=== PATIENT | male | born 1960 | race Caucasian/White ===

== ENCOUNTER → 2016-02-18 | Outpatient (CLI) | payer OTHER ==
[~2016-02-18] MED LIST: CELE1CAP8; HYDR2TAB PO; IVER1CRE; ROBA500T PO; ZOLP10TA3; ZOLP10TA3 PO
[2016-02-18 10:12] LABS: AUTOMATED NEUTROPHIL # 2.5 TH/MM3 (1.8-7.7); BASOPHIL # 0.1 TH/MM3 (0-0.2); BASOPHIL % 1.1 % (0.0-2.0); EOSINOPHIL # 0.1 TH/MM3 (0-0.4); HEMATOCRIT 45.5 % (39.0-51.0); HEMO FLAGS DIFF FINAL; LYMPH % 31.2 % (9.0-44.0); LYMPHOCYTE # 1.4 TH/MM3 (1.0-4.8); MEAN CELL VOLUME 84.5 FL (80.0-100.0); MEAN CORPUSCULAR HEMOGLOBIN 28.5 PG (27.0-34.0); MEAN CORPUSCULAR HGB CONC 33.7 % (32.0-36.0); MONO % 8.5 % (0.0-8.0); NEUT % 56.2 % (16.0-70.0); PLATELET COUNT 215 TH/MM3 (150-450); RED BLOOD COUNT 5.39 MIL/MM3 (4.50-5.90); WHITE BLOOD COUNT 4.4 TH/MM3 (4.0-11.0)
[2016-02-18 10:28] LABS: APTT (PATIENT) 26.4 SEC (24.3-30.1); PROTHROMBIN TIME - PATIENT 10.7 SEC (9.8-11.6)
[2016-02-18 10:44] LABS: ALKALINE PHOSPHATASE 81 U/L (45-117); ALT (GPT) 23 U/L (12-78); ANION GAP 4 MEQ/L (5-15); AST (GOT) 13 U/L (15-37); BICARBONATE 32.6 MEQ/L (21.0-32.0); BLOOD UREA NITROGEN 15 MG/DL (7-18); CHLORIDE 104 MEQ/L (98-107); GLOMERULAR FILTRATION RATE 68 ML/MIN (>89); GLUCOSE,FASTING 62 MG/DL (74-99); POTASSIUM 4.2 MEQ/L (3.5-5.1); SODIUM (NA) 141 MEQ/L (136-145)
== END ==
LOC: CLAB 09:37
DX: M54.5 Low back pain (principal); N18.2 Chronic kidney disease, stage 2 (mild); M48.02 Spinal stenosis, cervical region; M50.10 Cervical disc disorder with radiculopathy, unspecified cervical region; F41.1 Generalized anxiety disorder; R73.01 Impaired fasting glucose; E78.2 Mixed hyperlipidemia; F51.01 Primary insomnia
CPT/HCPCS: 36415; 80053; 85025; 85610; 85730

== ENCOUNTER 2016-02-28 09:56 | Inpatient (IN) | payer OTHER ==
[~2016-02-28] VITALS: Ht 185.4 cm; Wt 90.5 kg
[2016-03-06] MEDS ORDERED: INSULIN HUMAN REGULAR 1,000 UNITS/10 ML VIAL SQ PRN (07:30)
[2016-03-06] MEDS ORDERED: SODIUM CHLORID 0.9% 500 ML IV SCH (07:30)
[2016-03-06] MEDS ORDERED: LACTATED RINGER'S 1000 ML IV SCH (07:30)
[2016-03-06] MEDS ORDERED: METOPROLOL TARTRATE 25 MG TAB PO PRN (07:30)
[2016-03-06] MEDS ORDERED: LACTATED RINGER'S 1000 ML INJ 1,000 ML IV SCH (07:30)
[2016-03-06] MEDS ORDERED: GENTAMICIN SULFATE 80 MG/2 ML VIAL ONE (07:36)
[2016-03-06] MEDS ORDERED: THROMBIN (TOPICAL) 5,000 UNIT VIAL ONE (07:36)
[2016-03-06] MEDS ORDERED: GELFOAM SIZE 100 ONE ×2 (07:37→18:48)
[2016-03-06] MEDS ORDERED: LIDOCAINE 1%/EPINEPHrine 1:100,000 SOLN 20 ML VIAL ONE (07:37)
[2016-03-06 07:42] VITALS: BP 129/82; PULSE 71; RESP 18; TEMP 97.5; O2SAT 99
[2016-03-06] MEDS: ceFAZolin 1,000 MG/NS 100 ML IV SCH ×4 (07:55→18:40)
[2016-03-06] MEDS ORDERED: MIDAZOLAM HCL 2 MG/2 ML VIAL ONE ×2 (08:15→17:29)
[2016-03-06] MEDS ORDERED: ACETAMINOPHEN 1000 MG/100 ML VIAL IV ONE (08:15)
[2016-03-06] MEDS ORDERED: fentaNYL CITRATE 250 MCG/5 ML AMP ONE ×3 (08:15→21:34)
[2016-03-06] MEDS ORDERED: FAMOTIDINE 20 MG/2 ML VIAL ONE (08:16)
[2016-03-06] MEDS ORDERED: NORMOSOL R INJ 2,000 ML IV ONE (12:00)
[2016-03-06] MEDS ORDERED: PROPOFOL 200 MG/20 ML AMP IV ONE (12:00)
[2016-03-06] MEDS ORDERED: ONDANSETRON HCL 4 MG/2 ML VIAL IV PUSH ONE (12:00)
[2016-03-06] MEDS ORDERED: DEXAMETHASONE SOD PHOS 4 MG/ML VIAL ONE (17:29)
[2016-03-06] MEDS ORDERED: DO NOT ADM ANY ANTICOAGULANT DRUGS XX PRN (21:30)
[2016-03-06] MEDS ORDERED: HYDROmorphone HCL PF 1 MG/ML VIAL IV PRN (21:30)
[2016-03-06] MEDS ORDERED: NALOXONE HCL 0.4 MG/ML AMP IV PRN (21:30)
[2016-03-06] MEDS ORDERED: ONDANSETRON HCL 4 MG/2 ML VIAL IV PRN (21:30)
[2016-03-06] MEDS ORDERED: SODIUM CHLORIDE 0.9% FLUSH 5 ML FLUSH IVF PRN (21:30)
[2016-03-06] MEDS ORDERED: MORPHINE SULFATE 4 MG/ML INJ IV PRN (21:30)
[2016-03-06] MEDS ORDERED: PROMETHAZINE INJ 25 MG/ML VIAL IM PRN (21:30)
[2016-03-06] MEDS ORDERED: ACETAMINOPHEN/HYDROcodone 325 MG/5 MG TAB PO PRN (21:30)
--- NOTE | 2016-03-06 21:41 | PD.OP ---
Operative Report Date of Surgery: Mar 06, 2016 Preoperative Diagnosis: (1) Cervical disc herniation (2) Cervical radiculopathy at C7 C6 7 herniated nucleus pulposus Right C7 radiculopathy Postoperative Diagnosis: (1) Cervical disc herniation (2) Cervical radiculopathy at C7 C6 7 herniated nucleus pulposus Right C7 radiculopathy Procedure: 1. C6 7 discectomy, resection right herniated nucleus pulposus (microtechnique 2. Placement C6 7 artificial disc (Mobi-C) Anesthesia: Gen. endotracheal Surgeon: Shamar Holland Correspondence Section Supervisor(s): Vidal Lama Operation and Findings: Findings: Large sequestered disc fragment extending along the exiting right C7 nerve root at the neural foramen. Procedure in detail: The patient was brought into the operating room and positioned in supine position on the 3080 table with the head and neck in neutral position. Glass catheter was placed. Lines were established by Anesthesia. Gen. endotracheal anesthesia was induced without difficulty, taking care not to significantly flex or extend the patient's neck during intubation and positioning. Leads for intraoperative neuro monitoring were placed and a baseline study obtained. All extremities were appropriately padded. The neck and upper chest were shaved with clippers and sterilely prepped and draped. Appropriate timeout procedure was performed with all personnel present and in agreement 1% Xylocaine with epinephrine was used for local infiltration over the incision site which was made transversely at the left C6-7 level and carried sharply down through the platysma muscle. The exposure was continued medial to the sternocleidomastoid muscle and carotid artery, and lateral to the trachea and esophagus. The prevertebral fascia was elevated away from the anterior longitudinal ligament with a Kitner sponge. The longus coli muscle on each side was elevated with the Dias elevator. The self-retaining retractor was placed with the blades beneath the longus coli muscle on each side. The appropriate levels were confirmed with intraoperative C-arm and preoperative imaging studies. The microscope was brought into place and used for the remainder of the procedure including the closure. The 14 mm distraction pins were used as needed for gentle distraction during the procedure. The procedure was performed at the C6-7 level. The anterior osteophyte was resected with the Leksell rongeur. The disc and annulus was incised with a 15 blade knife and discectomy performed with pituitary biopsy forceps and straight and angled curettes. The endplates were thoroughly cleaned with a curette. The TPS drill with the 4 mm barrel bur was used to remove the posterior margin of the vertebral body to remove any osteophytes and allow adequate access to the anterior spinal canal and allow for posterior placement of the artificial disc. The thin ligament dissector was used to free up the posterior annulus and ligament from the vertebral body margin. The remainder of the resection of the posterior annulus and ligament was performed with the 2 and 3 mm thin footplate Kerrison rongeurs. The uncovertebral joint was preserved on each side A rather large sequestered herniated nucleus pulposus was encountered posterior to the annulus on the right side and was lifted away from the thecal sac with the thickened ligament dissector and removed. The fragment extended ventral to the exiting C7 nerve root through the neural foramen. The appropriate size Mobi- C implant was then chosen using the trial. Using anatomic landmarks, and AP and lateral C-arm imaging, the 6 mm Mobi- C was then placed with a good fit of the implant. The blunt nerve hook was used to probe beneath the implant to ensure that there was no impingement on the thecal sac or exiting nerve roots. The entire construct was checked with intraoperative C-arm and felt to be satisfactory. The 10 Telugu drain was brought out through a small incision in the left lower neck and secured to the skin with nylon suture and attached to sterile suction. The closure was performed with 3-0 Vicryl running for the platysma and interrupted for the subcutaneous closure, with 4-0 Vicryl running for the subcuticular closure. A dressing of sterile Mastisol, Steri-Strips, and Primapore dressing was placed. The patient was taken to recovery room in stable condition. All counts were correct at the end of the case. Estimated blood loss was 100 cc No specimen was sent to pathology. Intraoperative neuro monitoring remained stable during the procedure. Shamar Holland MD Mar 06, 2016 21:41
[2016-03-06] MEDS ORDERED: METHOCARBAMOL 500 MG TAB PO PRN (21:45)
[2016-03-06] MEDS: D5-1/2 NS + KCL 20 MEQ INJ 1,000 ML IV SCH (22:30)
--- NOTE | 2016-03-06 22:46 | RADRPT ---
EXAM DATE/TIME: 03/06/2016 18:45 [place] COMPARISON: No previous studies available for comparison. INDICATIONS : Neck pain. MEDICAL HISTORY : None. SURGICAL HISTORY : None. ENCOUNTER: Initial ACUITY: 1 day PAIN SCORE: Non-responsive. LOCATION: cervical FINDINGS: Two projection examination was performed. There is a fusion in the lower cervical spine with screw f ixation across C5-6 and articulating disc at C6-7. Drain present in soft tissues. CONCLUSION: 1. Fusion as above. Shankar Clemens MD on March 06, 2016 at 22:44 Board Certified Radiologist. This report was verified electronically.
[2016-03-06] MEDS ORDERED: BENZOCAINE-MENTHOL (SUGAR FREE) 15 MG-3.6 MG LOZENGE BUCCAL PRN (23:45)
[2016-03-07] VITALS: BP 144/77; PULSE 87; RESP 17; TEMP 96.4; O2SAT 100
[2016-03-07] MEDS: oxyCODONE/ACETAMINOPHEN 10 MG/325 MG TAB PO PRN ×2 (01:26→08:47)
[2016-03-07 04:00] VITALS: BP 109/71; PULSE 78; RESP 16; TEMP 96.4; O2SAT 98
[2016-03-07] MEDS: D5-1/2 NS + KCL 20 MEQ INJ 1,000 ML IV SCH (07:30)
[2016-03-07 08:08] VITALS: BP 114/70; PULSE 74; RESP 16; TEMP 96.6; O2SAT 99
[2016-03-07] MEDS ORDERED: ZOLPIDEM TARTRATE 10 MG TAB PO SCH (09:00)
[2016-03-07] MEDS ORDERED: DOCUSATE SODIUM 100 MG CAP PO SCH (09:00)
[2016-03-07] MEDS ORDERED: SODIUM CHLORIDE 0.9% FLUSH 5 ML FLUSH IVF SCH (09:00)
[2016-03-07] MEDS ORDERED: PANTOPRAZOLE SOD 40 MG DELAYED RELEASE TAB PO SCH (09:00)
--- NOTE | 2016-03-07 11:50 | HHI.DCPOC ---
Discharge Care Plan Your Health Problems Are: Incision/Drains Exercise Tolerance Goals to Promote Your Health * To prevent worsening of your condition and complications * To maintain your health at the optimal level Directions to Meet Your Goals Take your medications as prescribed Follow your dietary instruction Follow activity as directed Keep your appointments as scheduled Take your immunizations and boosters as scheduled If your symptoms worsen call your PCP, if no PCP go to Urgent Care Center or Emergency Room Smoking is Dangerous to Your Health. Avoid second hand smoke Call the 24-hour hour crisis hotline for domestic abuse at Shamar Holland MD Mar 07, 2016 11:50
[2016-03-07 12:34] VITALS: BP 124/66; PULSE 71; RESP 18; TEMP 96.9; O2SAT 99
[2016-03-07] MEDS ORDERED: HYDR2TAB PO (12:53)
--- NOTE | 2016-03-07 12:53 | HHI.DS ---
Discharge Summary Admission Date Mar 07, 2016 at 11:30 Discharge Date: Mar 07, 2016 Admitting Diagnosis Discharge Instructions DIET: Follow Instructions for: Soft Diet Activities to Avoid: Lifting/Bending, Strenuous Activity Shamar Holland MD Mar 07, 2016 12:53
[2016-04-07] MEDS ORDERED: ZOLP10TA3 (13:14)
[2016-08-02] MEDS ORDERED: ROBA500T PO (16:54)
== END 2016-03-07 14:03 | disposition home or self-care (01) | DRG 518 ==
LOC: N06A 03-06 06:39 → INTOOBSV 03-06 06:40 → HSDI 03-06 06:40 → UNDOADMOB 03-06 06:40 → HSDI 03-06 23:19 → N06A 03-06 23:19 → OBSVTOIN 03-07 11:30 → INTOOBSV 03-07 11:30
PROVIDERS: ADMIT Neurological Surgery; ATTEND Neurological Surgery
PROC: 0RR30JZ Replacement of Cervical Vertebral Disc with Synthetic Substitute, Open Approach (ICD-10-PCS; principal; 2016-03-07)
PROC: 0RT30ZZ Resection of Cervical Vertebral Disc, Open Approach (ICD-10-PCS; 2016-03-07)
DX: M50.123 Cervical disc disorder at C6-C7 level with radiculopathy (principal); Z98.1 Arthrodesis status
CPT/HCPCS: 72040; 76000; C1713; J0131; J0690; J1100; J1580; J2250; J2405; J3010; J3480; J7120; L0150; L0172

== ENCOUNTER 2017-04-11 10:34 | Day surgery (SDC) | payer OTHER ==
[2017-04-11] VITALS (10 sets, daily range): BP systolic 122–151; BP diastolic 78–86; PULSE 62–74; RESP 16–18; TEMP 97.7–98.2; O2SAT 100
[~2017-04-11] VITALS: Ht 185.4 cm; Wt 86.6 kg
[~2017-04-11 10:34] MED LIST changes: +HYDR-3516 PO; -HYDR2TAB PO; -IVER1CRE; -ROBA500T PO; -ZOLP10TA3 PO
[2017-04-11] MEDS ORDERED: IOHEXOL 350 MG/ML 100 ML BTL (for Cath Lab) OTHER ONE (10:35)
[2017-04-11] MEDS ORDERED: NS 1000P @30 MLS/HR (KVO) IV SCH (11:00)
[2017-04-11] MEDS ORDERED: ASPI-516 CHEW (11:04)
[2017-04-11] MEDS ORDERED: CYCL10TA PO (11:04)
[2017-04-11] MEDS ORDERED: CELE1CAP8 PO (11:04)
[2017-04-11] MEDS ORDERED: AMBI10TA PO (11:04)
[2017-04-11] MEDS ORDERED: AMLO10TA2 PO (11:04)
[2017-04-11 11:44] LABS: AUTOMATED NEUTROPHIL # 2.1 TH/MM3 (1.8-7.7); BASOPHIL % 0.4 % (0.0-2.0); EOSINOPHIL # 0.1 TH/MM3 (0-0.4); EOSINOPHIL % 1.7 % (0.0-4.0); HEMOGLOBIN 15.1 GM/DL (13.0-17.0); LYMPH % 37.5 % (9.0-44.0); LYMPHOCYTE # 1.5 TH/MM3 (1.0-4.8); MEAN CELL VOLUME 86.6 FL (80.0-100.0); MEAN CORPUSCULAR HGB CONC 33.5 % (32.0-36.0); MONO % 9.2 % (0.0-8.0); MONOCYTE # 0.4 TH/MM3 (0-0.9); NEUT % 51.2 % (16.0-70.0); PLATELET COUNT 198 TH/MM3 (150-450); RED CELL DISTRIBUTION WIDTH 13.5 % (11.6-17.2); WHITE BLOOD COUNT 4.1 TH/MM3 (4.0-11.0)
[2017-04-11 11:53] LABS: PROTHROMBIN TIME - PATIENT 10.6 SEC (9.8-11.6)
[2017-04-11] MEDS ORDERED: HEPARIN-NS/PF FLUSH BAG 2,000 ML IV FLUSH ONE (11:54)
[2017-04-11] MEDS ORDERED: NITROGLYCERIN INJ 5 ML ONE (12:00)
[2017-04-11] MEDS ORDERED: HEPARIN SODIUM - IV 10,000 UNITS/10 ML VIAL ONE ×2 (12:00→13:35)
[2017-04-11] MEDS ORDERED: VERAPAMIL HCL 5 MG/2 ML VIAL ONE (12:00)
[2017-04-11] MEDS ORDERED: MIDAZOLAM HCL 2 MG/2 ML VIAL ONE (12:00)
[2017-04-11 12:03] LABS: BICARBONATE 30.7 MEQ/L (21.0-32.0)
[2017-04-11] MEDS ORDERED: TICAGRELOR 90 MG TAB PO ONE (13:09)
[2017-04-11] MEDS ORDERED: SODIUM CHLOR 0.9% 1000 ML INJ 1,000 ML IV SCH (13:57)
[2017-04-11] MEDS ORDERED: ONDANSETRON HCL 4 MG/2 ML VIAL IVP PRN (14:00)
[2017-04-11] MEDS ORDERED: ACETAMINOPHEN 325 MG TAB PO PRN (14:00)
[2017-04-11] MEDS ORDERED: MORPHINE SULFATE 2 MG/ML INJ IV PUSH PRN (14:00)
[2017-04-11] MEDS ORDERED: oxyCODONE/ACETAMINOPHEN 10 MG/325 MG TAB PO PRN (14:00)
[2017-04-11] MEDS ORDERED: oxyCODONE/ACETAMINOPHEN 5 MG/325 MG TAB PO PRN (14:00)
[2017-04-11] MEDS ORDERED: MISC INFORMATION XX ONE (14:00)
--- NOTE | 2017-04-11 14:03 | CATHPROC ---
[place] HIS Report Study Information Study Number Admission Scheduled Start Study Start [id number] Apr 11 2017 10:34AM 04/11/2017 Apr 11 2017 11:36AM [place] Service Cardiac Catheterization Admit Source Facility Department Other [facility] Physician and Clinical Staff Initial Favian Mosley Rip Machine Operator Jaiden Miller,ANTONIO Rip Machine Operator Stefano Payton,ANTONIO Recorder Ambika Bazan,RT(R) Scrub Jerica Cooley ,RT(R) Procedures Performed Procedure Location (Site) Vessel Name Coronary Angiograms LCA Left Coronary Coronary Angiograms RCA Right Coronary Drug Eluting Inflatio LAD Prox Left Coronary Drug Eluting Inflatio RCA Prox Right Coronary L Heart Cath PTCA LAD Prox Left Coronary PTCA RCA Prox Right Coronary Wire insertion Radial (right) Radial Art. Equipment Time Automated Weaver Description Size Mfg Part Number Used/Scraped WIRE, BALANCE MIDDLEWEIGHT [id number] 13:20 [employer] 190CM Used 190CM *[id number] TRANSDUCER, TRUWAVE [id number] 11:40 RAMIREZ ORTIZ * Used W/STOCKCOCK *[id number] *[id number] *[id number] 11:40 Squid Facil PACK, CCL CUSTOM * Used *[id number] 11:40 Squid Facil SUPPORT, ARTERIAL ADULT 92545 *[id number] Used [id number] 12:56 [employer]TR[employer] BALLOON, 2.5 X 10MM EUPHORA 10MM Used *[id number] BALLOON, 3.0 X 12MM NC [id number] 13:10 MEDTRONIC 12MM Used EUPHORA *[id number] BALLOON, 3.25 X 12MM NC [id number] 13:35 MEDTRONIC 12MM Used EUPHORA *[id number] 12:19 MEDTRONIC JR 4.0 DXTERITY CATHETER FR 5 Used *[id number] 13:03 MEDTRONIC STENT, 3.0 15MM DAYTON 3.0 15MM Used *[id number] 13:30 MEDTRONIC STENT, 3.0 15MM DAYTON 3.0 15MM Used *[id number] 12:41 MEDTRONIC/AVE EBU 3.5 Z2 GUIDE CATHETER FR 6 Used *[id number] [id number] 13:01 [place] 30 IDA INDEFLATOR Used *6589030 BAND, RADIAL COMPRESSION TR [id number] 13:41 [email or web address] MEDICAL 24CM Used SHORT 24 *[id number] 11:40 [email or web address] MEDICAL WIRE, EXCHANGE 260CM 3MMJ 260CM Used *[id number] 11:40 NAMIC MANIFOLD, 4 PORT * Used *[id number] 11:40 NYCOMED OMNIPAQUE, 350 MG, 150ML 150ML [id number] Used [id number] 11:40 [facility] BLANKET,WARM AIR CCL * Used *[id number] SHEATH, FR6 TRANSRADIAL [id number] 11:40 Publish2 FR 6 Used SLENDER 10CM *[id number] 12:50 [email or web address] PRIME WIRE, VERRATA 185CM 185CM 50138 *[id number] Used Equipment Model, Serial, Lot Number and Expiration Data Description Model Number Serial Number Lot Number Expiration Date BALLOON, 3.0 X 12MM NC [id number] 10-06-2018 EUPHORA BALLOON, 3.25 X 12MM NC [id number] 08-28-2018 EUPHORA JR 4.0 DXTERITY CATHETER [id number] 11-17-2019 STENT, 3.0 15MM DAYTON [id number] 11-14-2018 STENT, 3.0 15MM DAYTON [id number] 01-03-2019 History: Current Medications Medication Dosage/Unit Route Frequency Last Date/Time Taken ASA NORVASC History: Allergies Allergy Reaction No Known Allergies History: Risk Factors Family History of Hypertension Dyslipidemia Previous OH Previous Heart Failure Premature CAD No No Yes No No Prior Valve Prior PCI Prior CABG Surgery No No No Cerebrovascular Peripheral Artery Chronic Lung On Dialysis Diabetes Disease Disease Disease No No No No No History: Stress Tests Stress or Imaging Studies Performed No History: Other Current Smoker No Labs Hgb (g/dl) Hct (%) RBC (MIL/MM3) WBC (l/cumm) Platelets (thousands) 11.60-17.00 35.00-51.00 4.00-5.90 4.00-11.00 150.00-450.00 15.1 45 5.2 4.1 198 Glucose (mg/dl) BUN (mg/dl) Creatinine (mg/dl) BUN:Creatinine (1:x) 74.00-106.00 7.00-18.00 0.50-1.30 10.00-20.00 90 14 1.0 14 Na (meq/l) K (meq/l) 136.00-145.00 3.50-5.10 140 3.8 INR (PTT:PT) 0.90-1.10 1 CPK-MB (ng/ML) 0.50-3.60 Not Drawn Medication Medication Total Dose (Bolus/Oral) Medication Total Dosage/Unit 1% XYLOCAINE 20 mL BRILLINTA 180 mg FENTANYL 100 mcg HEPARIN 7300 units RADIAL COCKTAIL 5 mL (Bolus) VERSED 1.5 mg Medications (Bolus/Oral) Medication Time Given Dosage/Unit Administered By Reason VERSED 04/11/2017 12:26:07 PM 0.5 mg Jaiden Miller 0.5 mg VERSED given in lab by Jaiden Miller RN in Left Forearm via Peripheral IV. Ordered by Favian Sutherland FENTANYL 04/11/2017 12:26:26 PM 25 mcg Jaiden Miller 25 mcg FENTANYL given in lab by Jaiden Miller RN in Left Forearm via Peripheral IV. Ordered by Favian Clinton 1% XYLOCAINE 04/11/2017 12:27:41 PM 20 mL Favian Umaña 20 mL 1% XYLOCAINE given in lab by Favian Umaña in Right Radial via Subcutaneous. Ntg 200mcg Verapamil 2.5mg Heparin RADIAL COCKTAIL 04/11/2017 12:28:29 PM 5 mL (Bolus) Favian Umaña 3000U 5 mL (Bolus) RADIAL COCKTAIL given in lab by Favian Umaña in Right Radial via Radial. Using [S olution Name]. Reason: Ntg 200mcg Verapamil 2.5mg Heparin 3000U. HEPARIN 04/11/2017 12:46:41 PM 5300 units Jaiden Miller 5300 units HEPARIN given in lab by Jaiden Miller RN in Left Forearm via Peripheral IV. Ordered by Favian Tan VERSED 04/11/2017 12:48:13 PM 0.5 mg Jaiden Miller 0.5 mg VERSED given in lab by Jaiden Miller RN in Left Forearm via Peripheral IV. Ordered by Favian Sutherland FENTANYL 04/11/2017 12:48:27 PM 25 mcg Jaiden Miller 25 mcg FENTANYL given in lab by Jaiden Miller RN in Left Forearm via Peripheral IV. Ordered by Favian Clinton VERSED 04/11/2017 1:14:50 PM 0.5 mg Jaiden Miller 0.5 mg VERSED given in lab by Jaiden Miller RN in Left Forearm via Peripheral IV. Ordered by Favian Sutherland FENTANYL 04/11/2017 1:15:07 PM 25 mcg Jaiden Miller 25 mcg FENTANYL given in lab by Jaiden Miller RN in Left Forearm via Peripheral IV. Ordered by Favian Clinton FENTANYL 04/11/2017 1:30:42 PM 25 mcg Jaiden Miller 25 mcg FENTANYL given in lab by Jaiden Miller RN in Left Forearm via Peripheral IV. Ordered by Favian Clinton HEPARIN 04/11/2017 1:35:50 PM 2000 units Jaiden Miller 2000 units HEPARIN given in lab by Jaiden Miller RN in Left Forearm via Peripheral IV. Ordered by Favian Tan BRILLINTA 04/11/2017 1:43:03 PM 180 mg Jaiden Miller 180 mg BRILLINTA given in lab by Jaiden Miller RN in Per mouth via Oral. Ordered by José Miguel Umaña Medication (Drip) Medication Time Given Dosage/Unit Concentration/Unit Diluent (ml) Solution IV Solutions 04/11/2017 11:51:58 AM 0 mL (IV) 500 NaCl .9 Patient arrived on IV Solutions in Left Antecubital via Peripheral IV. Pump/Drip Flow = 20 ml/hr usin g NaCl .9. Initial Case Assessment Cardiovascular HR Rhythm NIBP Chest Pain 61 reg 151/87 0 Edema Present Skin color Skin None Normal Warm Circulatory - Right Pulses Dorsalis Pedis Femoral 2 2 Scale (0,1,2,3,4,d) Circulatory - Left Pulses Dorsalis Pedis Femoral 2 2 Scale (0,1,2,3,4,d) Circulatory - Lower Extremities Color Lower Right Color Lower Left Normal Normal Neurological State Oriented to time-place- Alert Moves all extremities person Respiration - General Respiration Rate SpO2 (%) (B/min) 18 100 Final Case Assessment Cardiovascular HR Rhythm NIBP Chest Pain 61 reg 140/85 0 Edema Present Skin color Skin None Normal Warm Circulatory - Right Pulses Dorsalis Pedis Femoral 2 2 Scale (0,1,2,3,4,d) Circulatory - Left Pulses Dorsalis Pedis Femoral 2 2 Scale (0,1,2,3,4,d) Circulatory - Lower Extremities Color Lower Right Color Lower Left Normal Normal Neurological State Oriented to time-place- Alert Moves all extremities person Respiration - General Respiration Rate SpO2 (%) (B/min) 20 100 Chronological Log Time Study Chronological Log 11:51:43 Patient arrived via Bed. 11:51:44 Patient Name, D.O.B, / Armband Verified By R.N. 11:51:44 Consent signed by the physician and the patient and verified by the [facility] staff. 11:51:45 Pre-op and post- op instructions given; patient acknowledges understanding of instructions. 11:51:46 Verbal Stimulation=2 Physical Stimulation=2 Airway=2 Respiration=2 TOTAL=8. (0=absent, 1=li mited, 2=present) 11:51:47 Presedation assessment performed by [facility] RN. 11:51:48 Allens test performed on the right radial and ulnar artery. 11:51:50 Patient has been NPO for More than 6Hrs. 11:51:52 Skin Breakdown- none per pt 11:51:53 Patient Warmer Placed on the Table. 11:51:55 José Prominences Protected 11:51:57 A # 20 IV was noted in the Forearm (left). Grade = 0 11:51:58 Patient arrived on IV Solutions in Left Antecubital via Peripheral IV. Pump/Drip Flow = 20 ml/hr using NaCl .9. 11:51:59 History and physical on the chart or being dictated. Assessment: Initial Case, HR=61 BPM, Rhythm=reg, KRHO=659/87 mmhg, Chest Pain=0, Edema=None, Co julio=Normal, Skin = Warm Right Pulses: Mau Ped=2, Femoral=2 Left Pulses: Mau Ped=2, Femoral=2 11:52:00 Lower Right Extremities: Color=Normal Lower Left Extremities: Color=Normal Neurological: State=Alert, Ox3, KC Respiration: Resp=18 B/min, IeK6=043 % Vitals capture started with the following parameters, Patient=Adult, Interval=5 min, Initial Pr mvcdgl=450 mmHg, 11:57:25 Deflation Rate=5 mmHg, Cuff placed on Left Arm 11:57:28 Reference ECG taken 11:58:36 HR=57 bpm, SRRK=885/87 mmhg, VwT5=685.0 %, Resp=9 B/min, Pain=0, Sudhakar=10, Chaparro=2 12:00:35 Right Radial and groin(s) prepped with 2% chlorhexidine, and draped after a 3 min. waiting time. 12:03:06 HR=62 bpm, QLWA=178/88 mmhg, XrF6=302.0 %, Resp=13 B/min 12:08:03 HR=60 bpm, QIKX=333/84 mmhg, FhC0=573.0 %, Resp=13 B/min 12:10:17 MD paged 12:12:06 Pressure channel 1 zeroed. 12:13:00 HR=71 bpm, UVRT=910/96 mmhg, RlG0=355.0 %, Resp=12 B/min 12:14:14 Pressure channel 1 zeroed. 12:17:34 MD responded 12:18:04 HR=64 bpm, LCSI=764/90 mmhg, XfM3=732.0 %, Resp=9 B/min 12:18:44 MD arrived. 12:23:07 HR=71 bpm, NXLG=925/94 mmhg, FoW3=548.0 %, Resp=10 B/min Time Out. Correct patient, correct procedure, correct physician, power injector loaded, or not loaded with contrast with 12:25:17 surgical team present. Time Out Concurred by MD and individual staff in procedure. 12:26:07 0.5 mg VERSED given in lab by Jaiden Miller, RN in Left Forearm via Peripheral IV. Ordered by Favian Umaña 12:26:26 25 mcg FENTANYL given in lab by Jaiden Miller, ANTONIO in Left Forearm via Peripheral IV. Order ed by Favian Umaña 12:26:51 Case Start 12:27:41 20 mL 1% XYLOCAINE given in lab by Favian Umaña in Right Radial via Subcutaneous. 12:27:49 Access site was Right Radial Artery. A SHEATH, FR6 TRANSRADIAL SLENDER 10CM FR 6 was advanced into the Radial (right) using the Perc utaneous ::56 technique. 12:28:10 HR=65 bpm, FQKN=306/89 mmhg, VeW9=346.0 %, Resp=14 B/min 5 mL (Bolus) RADIAL COCKTAIL given in lab by Favian Umaña in Right Radial via Radial. Us ing [Solution Name]. 12::29 Reason: Ntg 200mcg Verapamil 2.5mg Heparin 3000U. A JR 4.0 DXTERITY CATHETER FR 5 was advanced over a wire. OMNIPAQUE, 350 MG, 150ML 150ML was us ed for ::27 injections. Recorded Pressure: LV, HR=72, Condition=Condition 1 12:32:37 (Left Ventricle) LV 102/-1/2 Recorded Pressure: LV, Ao, HR=72, Condition=Condition 1 12:32:48 (Left Ventricle) LV 96/-1/1, (Aorta) Ao 96/56/76 12:33:07 HR=68 bpm, SUDF=340/73 mmhg, SpO2=98.0 %, Resp=19 B/min 12:33:37 The RCA was injected and visualized at various angles. OMNIPAQUE, 350 MG, 150ML 150ML used . After removing the current catheter a JL 3.5 INFINITI CATHETER FR 5 was advanced over a WIRE, E XCHANGE 260CM 12:34:12 3MMJ 260CM. Recorded Pressure: Ao, HR=69, Condition=Condition 1 12:35:50 (Aorta) Ao 104/67/85 12:36:51 The LCA was injected and visualized at various angles. OMNIPAQUE, 350 MG, 150ML 150ML used . 12:38:02 HR=59 bpm, RJYD=256/77 mmhg, SpO2=98.0 %, Resp=17 B/min 12:43:05 HR=55 bpm, IQVK=947/82 mmhg, HcR0=101.0 %, Resp=10 B/min After removing the current catheter a EBU 3.5 Z2 GUIDE CATHETER FR 6 was advanced over a WIRE, EXCHANGE 12:43:18 260CM 3MMJ 260CM. 12:46:20 Pressure channel 1 zeroed. 12:46:41 5300 units HEPARIN given in lab by Jaiden Miller RN in Left Forearm via Peripheral IV. Or dered by Favian Umaña 12:48:06 HR=59 bpm, NBZE=566/76 mmhg, GgZ2=019.0 %, Resp=14 B/min 12:48:13 0.5 mg VERSED given in lab by Jaiden Miller RN in Left Forearm via Peripheral IV. Ordered by Favian Umaña 12:48:27 25 mcg FENTANYL given in lab by Jaiden Miller RN in Left Forearm via Peripheral IV. Order ed by Favian Umaña 12:50:31 A PRIME WIRE, VERRATA 185CM 185CM was inserted via Radial (right). 12:52:05 Flow Wire was was placed in the LAD Dist. The IFR measures 0.89 Percent. 12:53:05 HR=64 bpm, QVXS=363/77 mmhg, SpO2=95.0 %, Resp=34 B/min 12:55:11 Flow Wire was was placed in the LAD Dist. The IFR measures 0.88 Percent. 12:57:07 Activated Clotting Time Drawn 12:58:06 HR=70 bpm, ZGZC=273/82 mmhg, VyS3=616.0 %, Resp=17 B/min A BALLOON, 2.5 X 10MM EUPHORA 10MM was inserted over PRIME WIRE, VERRATA 185CM 185CM via the Ra dial 12:58:42 (right). A BALLOON, 2.5 X 10MM EUPHORA 10MM over a PRIME WIRE, VERRATA 185CM 185CM in the LAD Prox was i nflated 13:00:04 using a 30 IDA INDEFLATOR at 12 ida for 15 sec. 13:02:31 Balloon Removed. 13:03:38 HR=56 bpm, GBFK=247/76 mmhg, NtU4=655.0 %, Resp=20 B/min 13:04:00 ACT (Normal Range 90-180) = 313 A STENT, 3.0 15MM DAYTON 3.0 15MM was advanced through a EBU 3.5 Z2 GUIDE CATHETER FR 6 over a [place] TERESA WIRE, 13:04:10 VERRATA 185CM 185CM. A STENT, 3.0 15MM DAYTON 3.0 15MM was deployed using a 30 IDA INDEFLATOR at 14 atmospheres for 30 seconds in 13:07:19 the LAD Prox. 13:08:06 HR=56 bpm, MICS=549/73 mmhg, SpO2=99.0 %, Resp=17 B/min 13:09:48 Delivery device removed A BALLOON, 3.0 X 12MM NC EUPHORA 12MM was inserted over PRIME WIRE, VERRATA 185CM 185CM via the Radial 13:11:04 (right). A BALLOON, 3.0 X 12MM NC EUPHORA 12MM over a PRIME WIRE, VERRATA 185CM 185CM in the LAD Prox wa s 13:11:14 inflated using a 30 IDA INDEFLATOR at 20 ida for 25 sec. A BALLOON, 3.0 X 12MM NC EUPHORA 12MM over a PRIME WIRE, VERRATA 185CM 185CM in the LAD Prox wa s 13:12:35 inflated using a 30 IDA INDEFLATOR at 20 ida for 15 sec. 13:13:07 HR=55 bpm, BWSG=287/74 mmhg, SpO2=99.0 %, Resp=14 B/min 13:13:38 Balloon Removed. 13:14:50 0.5 mg VERSED given in lab by Jaiden Miller RN in Left Forearm via Peripheral IV. Ordered by Favian Umaña 13:15:07 25 mcg FENTANYL given in lab by Jaiden Miller RN in Left Forearm via Peripheral IV. Order ed by Favian Umaña 13:15:47 Wire removed After removing the current catheter a JR 4.0 GUIDE CATHETER FR 6 was advanced over a WIRE, EXCH MILTON 260CM 13:17:04 3MMJ 260CM. 13:18:06 HR=57 bpm, ODME=599/78 mmhg, QvO7=611 %, Resp=20 B/min 13:22:08 A WIRE, BALANCE MIDDLEWEIGHT 190CM 190CM was inserted via Radial (right). 13:22:38 Interventional wire has crossed the lesion 13:23:09 HR=57 bpm, WFJO=015/74 mmhg, PpP1=086.0 %, Resp=22 B/min A BALLOON, 3.0 X 12MM NC EUPHORA 12MM was inserted over WIRE, BALANCE MIDDLEWEIGHT 190CM 190CM via 13:26:08 the Radial (right). A BALLOON, 3.0 X 12MM NC EUPHORA 12MM over a WIRE, BALANCE MIDDLEWEIGHT 190CM 190CM in the RCA Prox 13:26:28 was inflated using a 30 IDA INDEFLATOR at 14 ida for 12 sec. A BALLOON, 3.0 X 12MM NC EUPHORA 12MM over a WIRE, BALANCE MIDDLEWEIGHT 190CM 190CM in the RCA Prox 13:26:47 was inflated using a 30 IDA INDEFLATOR at 14 ida for 10 sec. 13:27:18 Balloon Removed. 13:28:08 HR=60 bpm, HBRX=447/80 mmhg, SpO2=99.0 %, Resp=20 B/min 13:29:12 Activated Clotting Time Drawn A STENT, 3.0 15MM DAYTON 3.0 15MM was advanced through a JR 4.0 GUIDE CATHETER FR 6 over a WIRE, BALANCE 13:29:24 MIDDLEWEIGHT 190CM 190CM. 13:30:42 25 mcg FENTANYL given in lab by Jaiden Miller RN in Left Forearm via Peripheral IV. Order ed by Favian Umaña. A STENT, 3.0 15MM DAYTON 3.0 15MM was deployed using a 30 IDA INDEFLATOR at 14 atmospheres for 30 seconds in 13:32:18 the RCA Prox. 13:33:07 HR=75 bpm, COTG=347/87 mmhg, SpO2=97.0 %, Resp=15 B/min 13:33:23 Delivery device removed 13:34:09 ACT (Normal Range 90-180) = 239 13:35:50 2000 units HEPARIN given in lab by Jaiden Miller RN in Left Forearm via Peripheral IV. Or dered by Favian Umaña A BALLOON, 3.25 X 12MM NC EUPHORA 12MM was inserted over WIRE, BALANCE MIDDLEWEIGHT 190CM 190CM via 13:36:15 the Radial (right). A BALLOON, 3.25 X 12MM NC EUPHORA 12MM over a WIRE, BALANCE MIDDLEWEIGHT 190CM 190CM in the RCA Prox 13:37:15 was inflated using a 30 IDA INDEFLATOR at 12 ida for 25 sec. A BALLOON, 3.25 X 12MM NC EUPHORA 12MM over a WIRE, BALANCE MIDDLEWEIGHT 190CM 190CM in the RCA Prox 13:38:08 was inflated using a 30 IDA INDEFLATOR at 14 ida for 20 sec. 13:38:10 HR=63 bpm, WVRO=493/85 mmhg, WlJ0=836.0 %, Resp=19 B/min 13:38:29 Balloon Removed. 13:40:01 Wire removed 13:41:21 Case End Radial Compression Device Used. 9 mLs of air placed in BAND, RADIAL COMPRESSION TR SHORT 24 24C M. Affected 13:41:48 hand 100 % O2 saturation. 13:41:57 No case complications noted. 13:41:58 Cine recording checked. 13:42:00 Bedside Report will be given. 13:42:01 Implantable Device card placed in patient's chart. 13:42:10 A Left Heart Cath was performed. 13:43:03 180 mg BRILLINTA given in lab by Jaiden Miller, RN in Per mouth via Oral. Ordered by Favian Lewis 13:43:11 HR=62 bpm, ZIDV=099/85 mmhg, FsO3=543.0 %, Resp=23 B/min Assessment: Final Case, HR=61 BPM, Rhythm=reg, ISSL=817/85 mmhg, Chest Pain=0, Edema=None, [place] r=Normal, Skin = Warm Right Pulses: Mau Ped=2, Femoral=2 Left Pulses: Mau Ped=2, Femoral=2 13:43:14 Lower Right Extremities: Color=Normal Lower Left Extremities: Color=Normal Neurological: State=Alert, Ox3, [place] Respiration: Resp=20 B/min, WmR0=472 % 13:51:09 [facility] End Study - Contrast Media Used In Study Contrast Total Opened (mL) Total Used (mL) Total Wasted (mL) Omnipaque 160 160 0 End Study - Maximum Contrast Load Max Contrast Load (mL) 440.5 End Study - Radiation Exposure Fluoro Time (minutes) 13.5 End Study - Sheaths Sheaths Pulled By Sheath Hold Time (min) Jerica Cooley End Study - Patient Disposition Complications Transferred To Interventional Outcome No Telemetry Bed successful
[2017-04-11] MEDS ORDERED: PILL SPLITTER OTHER PRN (14:15)
--- NOTE | 2017-04-11 14:55 | MA ---
cc: Favian Umaña Erin COOK 04/11/2017 DATE OF PROCEDURE: 04/11/2017 PROCEDURE PERFORMED: Left heart catheterization, coronary angiogram, moderate sedation 75 minutes, Kennedy drug-eluting stent (3 x 15) to the proximal LAD, [place] drug-eluting stent (3 x 15) to the proximal RCA, IFR LAD. PREPROCEDURE DIAGNOSIS: Unstable angina, abnormal CTA. POSTPROCEDURE DIAGNOSIS: Coronary artery disease, status post [place] drug-eluting stent (3 x 15) to the proximal left anterior descending, [place] drug-eluting stent (3 x 15) to the proximal right coronary artery. MEDICATIONS: Versed 1 mg, fentanyl 75 mcg, heparin 9500, verapamil 2.5 mg, nitro 200 mcg, Brilinta 180 mg. CONTRAST USED: 160 mL. FLUOROSCOPY: 13.5 minutes. MODERATE SEDATION: 75 minutes. ESTIMATED BLOOD LOSS: 20 mL. PROCEDURAL SUMMARY: Kaden Jackson is pleasant 56-year-old male who sees my partner, Dr. Becker, in the office and was noted to have unstable angina. Because of this, he was recommended CTA, which showed high degree lesions in the proximal LAD as well as the RCA. Because of this, he was recommended cardiac catheterization. Risks, benefits and alternatives were explained to him and he consented as such. He was brought to the lab and prepped in the usual sterile fashion. Right radial artery was accessed using a modified Seldinger technique and placement of a 5/6 Wolof slender sheath. This was easily aspirated and flushed. A JR4 was used for selective angiography of the right coronary artery system. This was aspirated and flushed. A JR4 was advanced over a J-wire to the descending aorta and across the aortic valve for measurement of left ventricular pressure. This was pulled back across the aortic valve showing no significant gradient of aortic stenosis. JR4 was used for selective angiography of the right coronary artery system. This was exchanged out for a JL3.5 which was used for selective angiography of the left coronary artery system. JL3.5 was removed over a J-wire. Please see interventional notes below. FINDINGS: LEFT MAIN: Normal size vessel with adequate reflux with trifurcates into an LAD, ramus and circumflex. LAD: 70% lesion in the proximal portion. After this, there is a long tibial lesion of 40-50% before the mid to distal portion. It gives off an upper and lower branch of a diagonal with 30% disease. RAMUS: Normal size vessel with 10% disease in the ostial portion, but no significant disease distally. LEFT CIRCUMFLEX: Normal size vessel with no significant disease. It supplies 2 obtuse marginals. RCA: Moderate to large size vessel with a 95% stenosis in the proximal portion. Distally, it is a dominant vessel, which supplies a PDA and PLV. Before the bifurcation of the PDA and PLV, there is a 30% stenosis. LVEDP: 1. INTERVENTION: Because of the significance of disease in the RCA, it felt like this should be intervened on, but the patient also has at least moderate to severe disease to the LAD. I felt that either one of these could be causing his symptoms and his LAD should be further evaluated. An EBU guide was engaged in the left main. The patient was given heparin as an anticoagulant. A Veratta wire was advanced into the distal LAD. IFR measurements were 0.88, showing significant stenosis. At this time, a compliant balloon (2.5 x 10) was used to predilate the lesion. An Kennedy drug-eluting stent (3 x 15) was placed over the lesion and inflated. This was then postdilated with a non-compliant balloon (3 x 12). Wire was removed and final angiogram shows a well-opposed stent with no dissections or perforations. EBU guide was removed. A JR4 guide was then engaged into the right coronary artery system. A BMW wire was placed distally. ACT was drawn and was 239 and so an additional 2000 of heparin was given. A compliant balloon (2.5 x 10) was used to predilate the lesion. An [place] drug-eluting stent (3 x 15) was then placed over the lesion and inflated. This was postdilated with a noncompliant balloon (3.25 x 12). Final angiogram shows a well-opposed stent with no perforations or dissections. JR4 guide was removed over a J-wire. A radial band was placed over the arteriotomy site for hemostasis. The patient was given 180 mg of Brilinta. He left the manager cath lab cardiovascularly stable. IMPRESSIONS: 1. Unstable angina with 2-vessel disease as above, status post [place] drug-eluting stent (3 x 15) to the proximal left anterior descending, Kennedy drug-eluting stent (3 x 15) to the proximal right coronary artery. 2. Abnormal CTA. RECOMMENDATIONS: 1. Mr. Jackson underwent PCI as above and will be recommended aspirin and Brilinta therapy. Aspirin will be recommended indefinitely and Brilinta should be for at least 12 months. 2. If Brilinta is too expensive for refills, he will call myself or Dr. Becker for changing him over to Plavix. 3. We will attempt to add beta mamie and statin therapy. We will evaluate his kidney function in the morning and consider adding SAMUEL inhibitor therapy. 4. He will be watched overnight and if stable in the morning, discharged home to follow up with Dr. Becker. Thank you for allowing me to see Kaden Jackson. If there are any questions, please do no hesitate to call. DO STEVO Cai/DIOMEDES , 02:10 PM , 02:54 PM
[2017-04-11] MEDS ORDERED: ZOLPIDEM TARTRATE 10 MG TAB PO PRN (21:00)
[2017-04-11] MEDS ORDERED: ATORVASTATIN 80 MG TAB PO SCH (21:00)
[2017-04-11] MEDS: METOPROLOL TARTRATE 25 MG TAB PO SCH (21:19)
[2017-04-11] MEDS: TICAGRELOR 90 MG TAB PO SCH (21:20)
[2017-04-12] VITALS (10 sets, daily range): BP systolic 110–119; BP diastolic 62–78; PULSE 52–74; RESP 20; TEMP 97.7–97.8; O2SAT 99–100
[2017-04-12 08:02] LABS: BASOPHIL % 0.5 % (0.0-2.0); EOSINOPHIL # 0.2 TH/MM3 (0-0.4); EOSINOPHIL % 3.1 % (0.0-4.0); HEMATOCRIT 44.1 % (39.0-51.0); HEMOGLOBIN 15.1 GM/DL (13.0-17.0); LYMPH % 21.2 % (9.0-44.0); LYMPHOCYTE # 1.3 TH/MM3 (1.0-4.8); MEAN CELL VOLUME 85.9 FL (80.0-100.0); MEAN CORPUSCULAR HEMOGLOBIN 29.4 PG (27.0-34.0); MEAN CORPUSCULAR HGB CONC 34.2 % (32.0-36.0); MEAN PLATELET VOLUME 8.9 FL (7.0-11.0); MONO % 8.9 % (0.0-8.0); MONOCYTE # 0.5 TH/MM3 (0-0.9); NEUT % 66.3 % (16.0-70.0); PLATELET COUNT 193 TH/MM3 (150-450); RED BLOOD COUNT 5.13 MIL/MM3 (4.50-5.90); RED CELL DISTRIBUTION WIDTH 13.5 % (11.6-17.2)
[2017-04-12 08:06] LABS: BICARBONATE 27.5 MEQ/L (21.0-32.0); CALCIUM 8.8 MG/DL (8.5-10.1); CREATININE 0.85 MG/DL (0.60-1.30)
[2017-04-12] MEDS ORDERED: METO25TA3 PO (08:55)
[2017-04-12] MEDS ORDERED: ATOR80TA45 PO (08:55)
[2017-04-12] MEDS ORDERED: ASPIRIN 81 MG CHEW TAB CHEW SCH (09:00)
[2017-04-12] MEDS ORDERED: LISI2.5T3 PO (09:14)
[2017-04-12] MEDS ORDERED: BRIL90TA PO (09:17)
--- NOTE | 2017-04-12 09:42 | EKG ---
Date Performed: 04/11/2017 Time Performed: 11:10:14 PTAGE: 56 years EKG: Sinus rhythm Normal ECG NO PREVIOUS TRACING DOCTOR: Destin Amador Interpretating Date/Time 04/12/2017 09:38:43
[2017-04-12] MEDS: METOPROLOL TARTRATE 25 MG TAB PO SCH (09:57)
[2017-04-12] MEDS: TICAGRELOR 90 MG TAB PO SCH (09:57)
--- NOTE | 2017-04-12 11:17 | PD.CARD.PN ---
Subjective Subjective Remarks Doing well this morning Up and ambulating without problems Objective Medications Current Medications Sodium Chloride 1,000 ml @ 30 mls/hr Q24H IV ; Start 04/11/17 at 11:00; Stop at 14:02; Status DC Heparin Sodium/ Sodium Chloride 2,000 ml @ As Directed STK-MED ONCE IV FLUSH ; Start 04/11/17 at 11:54; Stop 04/11/17 at 11:55; Status DC Midazolam HCl (Versed Inj) 2 mg STK-MED ONCE .ROUTE Last administered on at 12:00; Start 04/11/17 at 12:00; Stop 04/11/17 at 12:01; Status DC Fentanyl Citrate (fentaNYL INJ) 100 mcg STK-MED ONCE .ROUTE Last administered on 04/11/17at 12:00; Start 04/11/17 at 12:00; Stop 04/11/17 at 12:01; Status DC Verapamil HCl (Isoptin Inj) 5 mg STK-MED ONCE .ROUTE Last administered on at 12:00; Start 04/11/17 at 12:00; Stop 04/11/17 at 12:01; Status DC Heparin Sodium (Porcine) (Heparin Inj) 10,000 units STK-MED ONCE .ROUTE Last administered on 04/11/17at 12:00; Start 04/11/17 at 12:00; Stop 04/11/17 at 12:01 ; Status DC Nitroglycerin 5 ml @ As Directed STK-MED ONCE .ROUTE Last administered on at 12:00; Start 04/11/17 at 12:00; Stop 04/11/17 at 12:01; Status DC Ticagrelor (Brilinta) 180 mg STK-MED ONCE PO Last administered on 04/11/17at 13: 09; Start 04/11/17 at 13:09; Stop 04/11/17 at 13:10; Status DC Heparin Sodium (Porcine) (Heparin Inj) 10,000 units STK-MED ONCE .ROUTE Last administered on 04/11/17at 13:35; Start 04/11/17 at 13:35; Stop 04/11/17 at 13:36 ; Status DC Sodium Chloride 1,000 ml @ 100 mls/hr Q10H IV Last administered on 04/11/17at 14:56; Start 04/11/17 at 13:57; Stop 04/11/17 at 23:56; Status DC Acetaminophen (Tylenol) 325 mg Q4H PRN PO PAIN SCALE 1 TO 2; Start 04/11/17 at 14:00; Stop 04/12/17 at 10:15; Status DC Oxycodone/ Acetaminophen (Percocet 5-325 Mg) 1 tab Q4H PRN PO PAIN SCALE 3 TO 5; Start 04/11/17 at 14:00; Stop 04/12/17 at 10:15; Status DC Oxycodone/ Acetaminophen (Percocet 10-325 Mg) 1 tab Q4H PRN PO PAIN SCALE 6 TO 10; Start 04/11/17 at 14:00; Stop 04/12/17 at 10:15; Status DC Morphine Sulfate (Morphine Inj) 2 mg Q30M PRN IV PUSH BREAKTHROUGH PAIN; Start 04/11/17 at 14:00; Stop 04/12/17 at 10:15; Status DC Ondansetron HCl (Zofran Inj) 4 mg Q6H PRN IVP NAUSEA; Start 04/11/17 at 14:00; Stop 04/12/17 at 10:15; Status DC Ticagrelor (Brilinta) 90 mg BID PO Last administered on 04/12/17at 09:57; Start 04/11/17 at 21:00; Stop 04/12/17 at 10:15; Status DC Miscellaneous Information 1 ONCE ONCE XX ; Start 04/11/17 at 14:00; Stop at 14:06; Status DC Metoprolol Tartrate (Lopressor) 12.5 mg BID PO Last administered on 04/12/17at 09 :57; Start 04/11/17 at 21:00; Stop 04/12/17 at 10:15; Status DC Atorvastatin Calcium (Lipitor) 80 mg HS PO Last administered on 04/11/17at 21:19 ; Start 04/11/17 at 21:00; Stop 04/12/17 at 10:15; Status DC Amlodipine Besylate (Norvasc) 10 mg DAILY PO Last administered on 04/12/17at 09: 57; Start 04/12/17 at 09:00; Stop 04/12/17 at 10:15; Status DC Aspirin (Aspirin Chew) 81 mg DAILY CHEW Last administered on 04/12/17at 09:57; Start 04/12/17 at 09:00; Stop 04/12/17 at 10:15; Status DC Zolpidem Tartrate (Ambien) 10 mg HS PRN PO INSOMNIA; Start 04/11/17 at 21:00; Stop 04/12/17 at 10:15; Status DC Miscellaneous (Pill Splitter) 1 ea UNSCH PRN OTHER SEE LABEL COMMENTS; Start at 14:15; Stop 04/12/17 at 10:15; Status DC Iohexol (OMNIPAQUE 350 INJ (B[employer])) 100 ml STK-MED ONCE OTHER ; Start at 10:35; Stop 04/11/17 at 14:09; Status DC Vital Signs / I&O Vital Signs Date Time Temp Pulse Resp B/P (MAP) Pulse Ox O2 Delivery O2 Flow Rate FiO2 04/12/17 08:00 97.8 60 20 119/78 (92) 100 04/12/17 08:00 54 04/12/17 07:00 54 04/12/17 06:26 52 04/12/17 05:03 74 04/12/17 04:19 53 04/12/17 04:19 97.7 56 111/67 (82) 99 04/12/17 03:29 53 04/12/17 02:15 54 04/12/17 01:00 54 04/12/17 00:33 97.8 54 110/62 (78) 99 04/12/17 00:00 58 04/11/17 23:19 62 04/11/17 22:00 68 04/11/17 21:00 74 04/11/17 20:00 98.2 67 151/83 (105) 100 04/11/17 20:00 62 04/11/17 19:00 65 04/11/17 18:00 66 04/11/17 17:00 64 04/11/17 16:00 64 04/11/17 15:00 98.0 66 18 122/78 (93) 100 04/11/17 15:00 62 I/O 04/11/17 04/11/17 04/11/17 04/12/17 04/12/17 04/12/17 07:00 15:00 23:00 07:00 15:00 23:00 Intake Total 720 ml 240 ml Output Total 1200 ml Balance -480 ml 240 ml Intake Oral 720 ml 240 ml Output Urine Total 1200 ml # Voids 5 Physical Exam GENERAL: NAD, AAOx3 SKIN: Warm and dry. HEAD: Atraumatic. Normocephalic. EYES: Pupils equal and round. No scleral icterus. No injection or drainage. ENT: No nasal bleeding or discharge. Mucous membranes pink and moist. NECK: Trachea midline. No JVD. CARDIOVASCULAR: Regular rate and rhythm. RESPIRATORY: No accessory muscle use. Clear to auscultation. Breath sounds equal bilaterally. GASTROINTESTINAL: Abdomen soft, non-tender, nondistended. Hepatic and splenic margins not palpable. MUSCULOSKELETAL: Extremities without clubbing, cyanosis, or edema. No obvious deformities. Right radial no hematoma, neurovascularly intact distally NEUROLOGICAL: Awake and alert. No obvious cranial nerve deficits. Motor grossly within normal limits. Five out of 5 muscle strength in the arms and legs. Normal speech. PSYCHIATRIC: Appropriate mood and affect; insight and judgment normal. Laboratory Laboratory Tests Test 04/12/17 07:12 White Blood Count 6.0 TH/MM3 Red Blood Count 5.13 MIL/MM3 Hemoglobin 15.1 GM/DL Hematocrit 44.1 % Mean Corpuscular Volume 85.9 FL Mean Corpuscular Hemoglobin 29.4 PG Mean Corpuscular Hemoglobin Concent 34.2 % Red Cell Distribution Width 13.5 % Platelet Count 193 TH/MM3 Mean Platelet Volume 8.9 FL Neutrophils (%) (Auto) 66.3 % Lymphocytes (%) (Auto) 21.2 % Monocytes (%) (Auto) 8.9 % Eosinophils (%) (Auto) 3.1 % Basophils (%) (Auto) 0.5 % Neutrophils # (Auto) 4.0 TH/MM3 Lymphocytes # (Auto) 1.3 TH/MM3 Monocytes # (Auto) 0.5 TH/MM3 Eosinophils # (Auto) 0.2 TH/MM3 Basophils # (Auto) 0.0 TH/MM3 CBC Comment DIFF FINAL Differential Comment Blood Urea Nitrogen 10 MG/DL Creatinine 0.85 MG/DL Random Glucose 104 MG/DL Calcium Level 8.8 MG/DL Sodium Level 141 MEQ/L Potassium Level 3.9 MEQ/L Chloride Level 107 MEQ/L Carbon Dioxide Level 27.5 MEQ/L Anion Gap 7 MEQ/L Estimat Glomerular Filtration Rate 93 ML/MIN Assessment and Plan Problem List: (1) Unstable angina ICD Codes: I20.0 - Unstable angina (2) CAD (coronary artery disease) ICD Codes: I25.10 - Atherosclerotic heart disease of [place] coronary artery without angina pectoris Assessment and Plan 1) [place]/CAD s/p SETH to LAD, SETH to RCA ASA/Brilinta Add BB/Statin/SAMUEL-I Will call if Brilinta is too expensive and we will switch to Plavix 2) Questionable history of statin intolerance 3) Cardiovascularly stable for discharge, will follow up with Favian Fuentes DO Apr 12, 2017 11:17
== END 2017-04-12 10:07 | disposition home or self-care (01) ==
LOC: HDOC 10:34 → HDIC 10:34 → HCIS 14:10 → HDOC 04-12 10:07
PROVIDERS: ATTEND Nuclear Medicine Nuclear Cardiology
DX: I25.110 Atherosclerotic heart disease of native coronary artery with unstable angina pectoris (principal); I49.3 Ventricular premature depolarization; G89.4 Chronic pain syndrome; Z79.82 Long term (current) use of aspirin
CPT/HCPCS: 80048; 85002; 85025; 85610; 85730; 92928; 92929; 93005; 93458; 93571; 99152; 99153; C1725; C1769; C1874; C1887; C1893; J1644; J2250; J3010; J7030; Q9967